=== PATIENT | male | born 1985 | race Caucasian/White ===

== ENCOUNTER 2025-03-09 10:31 | Emergency (ER) | payer BC ==
[~2025-03-09] VITALS: Ht 182.9 cm; Wt 86.2 kg
[2025-03-09 11:35] VITALS: BP 121/76; TEMP 98.2; O2SAT 98
== END 2025-03-09 11:36 | disposition home or self-care (01) ==
LOC: ER 10:40
DX: S97.81XA Crushing injury of right foot, initial encounter (principal); W23.0XXA Caught, crushed, jammed, or pinched between moving objects, initial encounter; Y93.89 Activity, other specified; Y92.89 Other specified places as the place of occurrence of the external cause; Y99.9 Unspecified external cause status
CPT/HCPCS: 73610-TC; 73630-TC